=== PATIENT | male | born 1990 | race African-American/Black ===

== ENCOUNTER 2025-06-21 11:35 | Emergency (ER) | payer SELFPAY | END 2025-06-21 12:32 | disposition home or self-care (01) | LOC: CSHERS 11:35 | DX: R55 Syncope and collapse (principal); I10 Essential (primary) hypertension | CPT/HCPCS: 93005; 99284 ==

== ENCOUNTER 2025-07-23 19:32 | Emergency (ER) | payer OTHER, SELFPAY ==
[2025-07-23] MEDS ORDERED: Ketorolac Tromethamine 30 MG (1 mL) VIAL ONE (20:28)
[2025-07-23] MEDS ORDERED: Dexamethasone 4 MG TAB ONE (20:28)
== END 2025-07-23 20:05 | disposition home or self-care (01) ==
LOC: CSHERS 19:32
DX: J02.9 Acute pharyngitis, unspecified (principal); B97.89 Other viral agents as the cause of diseases classified elsewhere; I10 Essential (primary) hypertension
CPT/HCPCS: 87081; 87428; 87430; 96372; 99283; J1885; J8540

== ENCOUNTER 2025-10-15 11:27 | Emergency (ER) | payer OTHER, SELFPAY ==
[2025-10-15 12:36] LABS: #Basophils 0.04 10x3/uL (0.0-0.2); #Eosinophils 0.21 10x3/uL (0.0-0.5); #Monocytes 0.66 10x3/uL (0.0-1.1); #Neutrophils 4.51 10x3/uL (1.5-8.4); %Basophils 0.5 % (0.0-2.0); %Eosinophils 2.6 % (0.0-6.0); %Lymphocytes 32.0 % (18.0-47.0); %Monocytes 8.3 % (0.0-10.0); %Neutrophils 56.5 % (40.0-75.0); Hematocrit 47.1 % (38.8-50.0); Hemoglobin 14.8 g/dL (13.5-17.5); Mean Corpuscular Hemoglobin 26.2 pg (27.0-33.0); Mean Corpuscular Volume 83.4 fL (81.2-95.1); Platelet Count 294 10x3/uL (150-450); Red Blood Cell (RBC) Count 5.65 10x6/uL (4.32-5.72); White Blood Cell (WBC) Count 7.99 10x3/uL (3.5-10.5)
[2025-10-15 12:59] LABS: ALT (SGPT) 72 U/L (Less than 45); AST (SGOT) 37 U/L (11-34); Albumin 4.1 g/dL (3.1-4.5); Alkaline Phosphatase 59 U/L (40-110); Anion Gap 12 mmol/L (10-20); BUN (Urea Nitrogen) 7 mg/dL (8.9-20.6); Bilirubin, Total 1.0 mg/dL (0.3-1.2); Calc. Creatinine Clearance 0 mL/min (70-130); Calcium 9.5 mg/dL (7.8-10.44); Carbon Dioxide 27 mmol/L (22-29); Chloride 104 mmol/L (98-107); Globulin 4.2 g/dL (2.4-3.5); Glucose 275 mg/dL (70-105); Magnesium 1.9 mg/dL (1.6-2.6); Potassium 4.4 mmol/L (3.5-5.1); Sodium 139 mmol/L (136-145)
== END 2025-10-15 13:30 | disposition home or self-care (01) ==
LOC: CSHERS 11:27
DX: E11.65 Type 2 diabetes mellitus with hyperglycemia (principal); I10 Essential (primary) hypertension
CPT/HCPCS: 36416; 80053; 82010; 83735; 84100; 85025; 93005; 96360